=== PATIENT | female | born 1990 | race Caucasian/White ===

== ENCOUNTER → 2018-01-12 17:32 | Outpatient (CLI) | payer MEDICAID ==
[~2018-01-12 17:32] MED LIST: FERROUS SULFAT325 MG PO; IBUPROFEN800 MG PO; PERCOCET 7.5/321 TAB PO; PRENATAL COMPLE1 TAB PO
[2018-01-13 02:18] VITALS: BMI 27.3
== END | disposition home or self-care (01) ==
LOC: D.LDO 17:32
DX: O26.899 Other specified pregnancy related conditions, unspecified trimester (principal); Z3A.00 Weeks of gestation of pregnancy not specified

== ENCOUNTER 2018-01-13 01:07 | Inpatient (IN) | payer MEDICAID ==
[2018-01-13] VITALS (8 sets, daily range): BP systolic 116–135; BP diastolic 56–71; Ht 160 cm; Wt 69.9 kg
[~2018-01-13] VITALS: Ht 160 cm; Wt 69.9 kg
--- NOTE | ~2018-01-13 | OP ---
PATIENT NAME: FAB ROBLES MEDICAL RECORD: [id number] :92 LOCATION:[facility] [id number] ADMISSION DATE:01/13/18 SURGEON: GEN HER MD DATE OF OPERATION: 01/13/2018 PREOPERATIVE DIAGNOSES: 1. at term, in active labor. 2. Nonreassuring surveillance. POSTDELIVERY DIAGNOSES: 1. at term, in active labor. 2. Nonreassuring surveillance. 3. Nuchal cord times 1. 4. OP presentation. PROCEDURE: Primary low transverse section. SURGEON: Gen Her MD PROTOTYPE DEICER ASSEMBLER: Pradeep Mcdonald ANESTHETIC: Continuous lumbar epidural/general anesthetic with endotracheal intubation. FINDINGS: Viable female . OP presentation. Nuchal cord times 1, reduced. Apgars 9 and 9. Weight 6 pounds 6 ounces. Unremarkable uterus, tubes and ovaries. Of note is pronounced sacral promontory. SPECIMEN REMOVED: Placenta. SPECIMEN DISPOSITION: Pathology. ESTIMATED BLOOD LOSS: 700 cc. FLUIDS: 1 liter of lactated Ringer's. URINE OUTPUT: 200 cc of clear urine. COMPLICATIONS: None. DRAIN: Begum to gravity. INDICATIONS: The patient is a 27-year-old female who presents in active labor. The patient developed deep variable decelerations and had a previous bradycardic event. The patient is consented for a primary low transverse section. DESCRIPTION OF PROCEDURE: After informed consent was assured, the patient was taken to the operating room where anesthetic was obtained without difficulty. The patient was prepped and draped and an assessment of the anesthetic reveals adequate anesthesia along the lower abdomen. However, the patient has increased sensation approaching the umbilicus. The procedure was started and upon reaching the fascia, the patient feels more discomfort and the procedure was ceased while rapid sequence induction was undertaken. Once this has been done, the rectus bellies were in the midline. The peritoneum entered bluntly and a rectus belly stretched. DeLee all-purpose retractor was inserted. OPERATIVE REPORT [id number] FAB ROBLES Low transverse hysterotomy was performed and the was delivered onto the abdomen atraumatically. The cord was doubly clamped and cut and the infant was passed to the attendance. Cord blood sample and cord gases obtained. The placenta was delivered via Crede maneuver. Uterus exteriorized, cleared of all clot and debris. The uterus is now closed in 2 layers. The initial layer was a running locked stitch of chromic and the second is an imbricating vertical mattress stitch of chromic. The pelvis was irrigated and irrigant removed. The uterus has now returned to the abdomen and the anterior cul-de-sac irrigated. The incision was inspected under the water and no bleeding is noted. The water was now removed and both sponges that had been placed earlier to keep the bowel from the incision is removed. The sponge count is correct times 1. The rectus was inspected and found to be hemostatic and then reapproximated with 2 loose chromic stitches in the midline. The fascia was closed with looped PDS. Subcutaneous tissues inspected, bleeding vessels cauterized. The skin was now reapproximated with marty. Sterile dressing is applied. Sponge, lap, and needle count is correct times 2 at the close of this procedure. TRANSINT:[id number] Voice Confirmation ID: [id number] DOCUMENT ID: [id number] GEN HER MD at 0820 CC: [id number] DICTATION DATE: 01/13/18 1631 DRAFTER CONSTRUCTION: 01/13/18 1700 ADM IN [facility] [address] [place] [address]
[2018-01-13 02:02] LABS: HEMATOCRIT 33.1 % (36.0-48.0); MCH 33.1 pg (26.0-34.0); MCHC 36.3 g/dL (31.0-37.0); MCV 91.4 fL (80.0-100.0); MEAN PLATELET VOLUME 11.5 fL (7.4-10.4); RBC 3.62 10x6/uL (4.00-5.40); RDW 13.6 % (11.5-14.5); WBC 15.1 10x3/uL (4.8-10.8)
[2018-01-13] MEDS ORDERED: PRENATAL COMPLE1 TAB PO (02:17)
[2018-01-13] MEDS ORDERED: FERROUS SULFAT325 MG PO (02:17)
[2018-01-13 03:13] LABS: APPEARANCE HAZY (CLEAR); COLOR YELLOW (YELLOW); GLUCOSE NEGATIVE (NEGATIVE); KETONE SMALL mg/dL (NEGATIVE); NITRITE NEGATIVE (NEGATIVE); PROTEIN NEGATIVE (NEGATIVE)
[2018-01-13 03:14] LABS: BILIRUBIN NEGATIVE (NEGATIVE); UROBILINOGEN NORMAL (NORMAL); WHITE CELLS - URINE 0-5 /hpf (0-5)
[2018-01-13 03:22] LABS: UDS - AMPHET NEGATIVE QUAL (NEGATIVE); UDS - BARB NEGATIVE QUAL (NEGATIVE); UDS - BENZO NEGATIVE QUAL (NEGATIVE); UDS - COCAINE NEGATIVE QUAL (NEGATIVE); UDS - OPIATE POSITIVE QUAL (NEGATIVE); UDS - PCP NEGATIVE QUAL (NEGATIVE); UDS - THC NEGATIVE QUAL (NEGATIVE)
[2018-01-14 03:10] VITALS: BP 113/62
[2018-01-14 07:51] LABS: HEMATOCRIT 23.4 % (36.0-48.0); HEMOGLOBIN 7.8 g/dL (12-16); MCHC 33.3 g/dL (31.0-37.0); MCV 92.9 fL (80.0-100.0); MEAN PLATELET VOLUME 10.3 fL (7.4-10.4); RBC 2.52 10x6/uL (4.00-5.40); RDW 13.5 % (11.5-14.5)
[2018-01-14 08:01] VITALS: BP 105/52
[2018-01-14 12:40] VITALS: BP 131/66
[2018-01-14 19:49] VITALS: BP 124/60
[2018-01-15 05:20] VITALS: BP 129/68
[2018-01-15 08:55] VITALS: BP 117/63
[2018-01-15 14:58] VITALS: BP 124/56
[2018-01-15 19:09] LABS: HEMATOCRIT 21.1 % (36.0-48.0)
[2018-01-15 20:06] VITALS: BP 119/65
[2018-01-15 23:15] VITALS: BP 125/60
[2018-01-16 06:00] VITALS: BP 107/53
[2018-01-16 08:05] VITALS: BP 130/65
[2018-01-16] MEDS ORDERED: PERCOCET 7.5/321 TAB PO (09:13)
[2018-01-16] MEDS ORDERED: IBUPROFEN800 MG PO (09:13)
[2018-01-17 03:12] LABS: RAPID PLASMA REAGIN Non Reactive (Non Reactive)
[2018-01-17 14:27] LABS: UDSC - AMPHET Negative ng/mL (Cutoff=1000); UDSC - BARB Negative ng/mL (Cutoff=300); UDSC - BENZO Negative ng/mL (Cutoff=300); UDSC - COC Negative ng/mL (Cutoff=300); UDSC - METH Negative ng/mL (Cutoff=300); UDSC - OPIATES Positive (Cutoff=300); UDSC - PCP Negative ng/mL (Cutoff=25); UDSC - PROPOXY Negative ng/mL (Cutoff=300); UDSC - THC Negative ng/mL (Cutoff=50)
== END 2018-01-16 12:30 | disposition home or self-care (01) | DRG 766 ==
LOC: D.LD 01:07
PROVIDERS: Obstetrics & Gynecology
PROC: 10D00Z1 Extraction of Products of Conception, Low, Open Approach (ICD-10-PCS; principal; 2018-01-13 15:51)
DX: O76 Abnormality in fetal heart rate and rhythm complicating labor and delivery (principal); Z3A.38 38 weeks gestation of pregnancy; Z37.0 Single live birth; O99.334 Smoking (tobacco) complicating childbirth; O69.81X0 Labor and delivery complicated by cord around neck, without compression, not applicable or unspecified

== ENCOUNTER 2020-11-12 03:19 | Outpatient (CLI) | payer MEDICAID ==
[2018-01-13 02:18] VITALS: BMI 27.3
[2020-11-12 04:48] LABS: BASOPHILS 0.3 % (0-2); EOSINOPHILS 0.9 % (0-7); HEMATOCRIT 28.8 % (36.0-48.0); HEMOGLOBIN 9.5 g/dL (12-16); IMMATURE GRANULOCYTES 1.1 % (0-5); LYMPHOCYTE ABS# 3.98 10x3/uL (1.18-3.74); LYMPHOCYTES 22.1 % (15-50); MCH 30.7 pg (26.0-34.0); MCV 93.2 fL (80.0-100.0); MEAN PLATELET VOLUME 11.3 fL (7.4-10.4); MONOCYTES 7.1 % (2-11); NEUTROPHIL ABS# 12.34 10x3/uL (1.56-6.13); NEUTROPHILS 68.5 % (40-80); RBC 3.09 10x6/uL (4.00-5.40); RDW 13.6 % (11.5-14.5)
[2020-11-12 05:05] LABS: PLATELET COUNT 203 10x3/uL (130-400)
[2020-11-12 06:10] LABS: UDS - AMPHET NEGATIVE QUAL (NEGATIVE); UDS - BARB NEGATIVE QUAL (NEGATIVE); UDS - BENZO NEGATIVE QUAL (NEGATIVE); UDS - COCAINE NEGATIVE QUAL (NEGATIVE); UDS - OPIATE NEGATIVE QUAL (NEGATIVE); UDS - PCP NEGATIVE QUAL (NEGATIVE); UDS - THC NEGATIVE QUAL (NEGATIVE)
[2020-11-12 06:22] LABS: BILIRUBIN NEGATIVE (NEGATIVE); KETONE NEGATIVE (NEGATIVE); NITRITE NEGATIVE (NEGATIVE); UROBILINOGEN NORMAL mg/dL (< 2)
[2020-11-12 06:24] LABS: BACTERIA MANY HPF (NONE SEEN); SQUAMOUS EPITHELIAL 0-5 HPF (0-4); WHITE CELLS - URINE 0-5 HPF (0-4)
== END 2020-11-12 08:00 | disposition home or self-care (01) ==
LOC: D.LDO 03:19
PROVIDERS: ATTEND Obstetrics & Gynecology
DX: O47.03 False labor before 37 completed weeks of gestation, third trimester (principal)

== ENCOUNTER 2020-11-20 00:29 | Outpatient (CLI) | payer MEDICAID ==
[2018-01-13 02:18] VITALS: BMI 27.3
== END 2020-11-20 08:13 | disposition home or self-care (01) ==
LOC: D.LDO 00:29
PROVIDERS: ATTEND Student in an Organized Health Care Education/Training Program
DX: O47.9 False labor, unspecified (principal)

== ENCOUNTER 2020-12-08 23:09 | Inpatient (IN) | payer MEDICAID ==
[~2020-12-08] VITALS: Ht 160 cm; Wt 62.1 kg
--- NOTE | ~2020-12-08 | OP ---
PATIENT NAME: FAB ROBLES ROESTTE MEDICAL RECORD: [id number] :92 LOCATION:[facility] [id number] ADMISSION DATE:12/08/20 SURGEON: DANA ZAPIEN DO DATE OF OPERATION: 12/09/2020 PREOPERATIVE DIAGNOSIS: Previous 39 weeks and 3 days, painful contractions. POSTOPERATIVE DIAGNOSIS: Previous 39 weeks and 3 days, painful contractions. PRIMARY SURGEON: Dana Zapien DO ANESTHESIA: Spinal. PROCEDURE: Repeat low transverse section via Pfannenstiel incision. FINDINGS: Male , weight 6 pounds 9 ounces, delivered at 0626. Apgars 8 and 9. Normal appearing uterus, bilateral fallopian tubes, bilateral ovaries. SPECIMENS: Placenta and cord. ESTIMATED BLOOD LOSS: 800 cc. IV FLUIDS: 1 liter. URINE OUTPUT: 600 cc clear urine. COMPLICATIONS: None. CONDITION: Stable. DESCRIPTION OF PROCEDURE: Procedure, risks, benefits, alternatives, and indications of the procedure were discussed with the patient, she voiced understanding of the procedure and signed the consent. She was taken to the OR where spinal anesthesia was administered and found to be adequate. She was placed in the dorsal supine position with a leftward tilt. She was prepped and draped in the normal sterile fashion. A Pfannenstiel skin incision was made with a scalpel and carried down to the underlying layer of the fascia with the Bovie. The fascia was incised in the midline and extended laterally. The inferior aspect of the fascial incision was grasped with 2 Celeste clamps and the rectus muscle was dissected off sharply. Attention was then turned to the superior aspect of the fascial incision. The rectus muscle was dissected off in a similar fashion. The rectus muscle was grasped with 2 Allises and down to the level of the peritoneum with a scalpel. The peritoneum was identified and noted to be free of adherent bowel and entered bluntly. The peritoneum was further with gentle traction. The bladder blade was inserted. A bladder flap was created with Metzenbaum scissors and pickups. The lower uterine segment was incised in a transverse fashion and the incision was extended with cephalad and caudad traction. The 's head was brought to the incision and the infant delivered without difficulty. Mouth and nose were suctioned. Cord was clamped and cut. The was handed off to the awaiting pediatric team. Placenta was manually removed. The uterus was exteriorized and a moist lap was used to assure complete removal of placental membranes. The hysterotomy was closed with 0 Vicryl in a running locked fashion with good OPERATIVE REPORT [id number] FAB ROBLES hemostasis. The posterior cul-de-sac was irrigated with warm sterile water and suctioned. The uterus, tubes, and ovaries were noted to be normal and returned back to the abdominal cavity. A moist laparotomy sponge was used for complete removal of blood clots and fluid from the abdominal cavity. The hysterotomy was reinspected and noted to be hemostatic. The rectus muscle was closed with 2-0 Monocryl in a running fashion with good hemostasis. The fascial incision was closed with 0 Vicryl in a running fashion with good hemostasis. The skin was closed with 3-0 Monocryl with good hemostasis and Steri-Strips covering. All needle, laps, sponge, and instrument counts were correct times 2. The patient tolerated the procedure well and she was taken to recovery room in stable condition. TRANSINT:[id number] Voice Confirmation ID: [id number] DOCUMENT ID: [id number] DANA ZAPIEN DO CC: [id number] DICTATION DATE: 12/18/20 1151 RECRUITER SPECIALIST: 12/18/20 1423 DIS IN 12/10/20 [facility] [address] [place] [address]
[2020-12-09] VITALS (11 sets, daily range): BP systolic 107–135; BP diastolic 53–78; Ht 160 cm; Wt 62.1 kg
[2020-12-09 03:38] LABS: HEMATOCRIT 31.4 % (36.0-48.0); HEMOGLOBIN 10.4 g/dL (12-16); MCH 30.5 pg (26.0-34.0); MCHC 33.1 g/dL (31.0-37.0); MCV 92.1 fL (80.0-100.0); MEAN PLATELET VOLUME 10.2 fL (7.4-10.4); RBC 3.41 10x6/uL (4.00-5.40); RDW 13.6 % (11.5-14.5); WBC 15.8 10x3/uL (4.8-10.8)
--- NOTE | 2020-12-09 06:30 | NUR ---
BABY BOY BORN AT 0626.
--- NOTE | 2020-12-09 08:03 | NUR ---
PT RECEIVED IN BED IN ROOM 1274, AAOx3, RATES PAIN APPROX 3/10 AT THIS TIME. BEDSIDE REPORT RECEIVED FROM NATALIE METAL AND PLASTIC HEATER. IV INFUSING PITOCIN ORDERED TO LEFT HAND PIV, C/D/I. LARGE DRESSING OVER LOW TRANSVERSE ABD INCISION IS C/D/I. FF, ML, U/3. MODERATE RUBRA LOCHIA NOTED TO PERIPAD, NO CLOTS EXPELLED WITH MASSAGE. PERIPAD CHANGED. VIERA CATH DRAINING CLEAR YELLOW URINE TO BEDSIDE DRAINAGE, 135ML EMPTIED FROM UROMETER. SCD'S ON LE BILAT AND ON PUMP. NO LE EDEMA NOTED. POC DISCUSSED WITH PT, UNDERSTANDING VERBALIZED. SIPPING ON CLEAR LIQUID LUNCH TRAY, DENIES NAUSEA. SRUx2, CL IN REACH.
--- NOTE | 2020-12-09 08:30 | NUR ---
FF, ML, U/3. MODERATE RUBRA LOCHIA, NO CLOTS. PERIPAD CHANGED. PT DENIES NEEDS. SRUx2, CL IN REACH.
--- NOTE | 2020-12-09 09:00 | NUR ---
FF, ML, U/3. MOD RUBRA LOCHIA, NO CLOTS. 3 PERIPADS FOR PAST HOUR WEIGHED AND NOTED TO BE 80ML BLOOD LOSS FROM 0800 TO 0900. WILL CONT TO MONITOR.
--- NOTE | 2020-12-09 09:30 | NUR ---
FF, ML, U/3. MODERATE RUBRA LOCHIA, NO CLOTS. PERIPAD CHANGED. NEW ICE PACK TO ABD. SRUx2, CL IN REACH.
--- NOTE | 2020-12-09 10:00 | NUR ---
FF, ML, U/3. MODERATE RUBRA LOCHIA, NO CLOTS. PERIPAD CHANGED. PERIPADS WEIGHED FROM 0900 TO 1000 AND NOTED TO 50ML BLOOD LOSS FOR THE HOUR. 130ML CLEAR YELLOW URINE EMPTIED FROM UROMETER. PT DENIES NEEDS AT THIS TIME. SRUx2, CL IN REACH.
--- NOTE | 2020-12-09 11:00 | NUR ---
THIS RN TO ROOM FOR PT CHECK. PT REQUESTING BROTH, COFFEE, AND SPRITE. PROVIDED TO PT REQUESTED. FF, ML, U/3. SMALL TO MODERATE RUBRA LOCHIA, NO CLOTS. PT CONTINUES TO RATE PAIN 3/10, DENIES FURTHER NEEDS. SRUx2, CL IN REACH.
--- NOTE | 2020-12-09 12:15 | NUR ---
THIS RN TO ROOM FOR PT CHECK. VS REMAIN STABLE, SEE FLOWSHEET FOR DOC. FF, ML, U/3. MODERATE RUBRA LOCHIA NOTED. PERIPAD, CHUX PAD, AND TOWEL CHANGED. BLOOD LOSS WEIGHED SINCE 1000 AND NOTED TO BE 136ML BLOOD LOSS. TOTAL BLOOD LOSS SINCE RECEIVING PT FROM PACU AT 0803 NOTED TO BE 266ML, WILL NOTIFY . 380ML CLEAR YELLOW URINE EMPTIED FROM UROMETER. VIERA BAG EMPTIED. PT SITTING UP IN BED TO EAT CLEAR LIQUID LUNCH TRAY, DENIES NAUSEA. PT STATES SHE WANTS TO NAP AFTER SHE EATS, LIGHTS DIMMED AND OVERBED DIMMER LIGHT ON FOR PT TO SEE TRAY. PT DENIES FURTHER NEEDS. SRUx2, CL IN REACH.
--- NOTE | 2020-12-09 12:34 | NUR ---
DR VALENCIA PHONED WITH REPORT ON MODERATE LOCHIA FLOW AND TOTAL BLOOD LOSS ON THIS RN TO BE 266ML. ORDER RECEIVED TO START PT ON 0.2MG METHERGINE PO Q8H AND CONTINUE TO MONITOR LOCHIA. IF LOCHIA FLOW DOES NOT DECREASE, NOTIFY MD AND MAY ORDER CBC. WILL PROCEED ORDERED.
--- NOTE | 2020-12-09 13:15 | NUR ---
REPORT TO HUSSEIN MARTINEZ TO ASSUME CARE OF PT FOR SECOND HALF OF SHIFT.
--- NOTE | 2020-12-09 13:44 | NUR ---
BEDSIDE REPORT REC'D FROM Deidra PRATHER RN. POC DISCUSSED WITH PT AND QUESTIONS ANSWERED. MORPHINE STOREROOM CLERK OFFERED, PT REFUSES AT THIS TIME. STATES THAT PAIN IS "NOT THAT BAD." PERICARE DONE. 16 MLS RUBRA LOCHIA TO PERIPAD. PADS, TOWELS AND CHUX CHANGED. REFUSES TO DO INCENTIVE SPIROMETER, EDUCATION PROVIDED. ICE PACK PROVIDED. FF, MIDLINE AND U3. BED IN LOW POSITION WITH SRUP X2. CALL LIGHT AND PHONE WITHIN REACH.
--- NOTE | 2020-12-09 13:57 | NUR ---
C/O ABD AND INCISIONAL DISCOMFORT WITH ABD SORENESS WITH MOVEMENT AND FUNDAL CHECKS 09/30. TORADOL GIVEN. METHERGINE GIVEN, EDUCATION PROVIDED, VERBALIZES UNDERSTANDING AND DENIES NEEDS.
--- NOTE | 2020-12-09 14:21 | NUR ---
CALLS VIA CALL LIGHT, RN TO BEDSIDE. PT REQUESTS BE PLACED IN OPEN CRIB AT BEDSIDE. STATES THAT SHE IS SLEEPY AND FALLING ASLEEP. OFFERED TO TAKEN TO NBN, REFUSES. EDUCATED ON SAFE SLEEP, VERBALIZES UNDERSTANDING. STATES THAT SIG OTHER WILL BE RETURNING TO HOSPITAL THIS EVENING LATER.
--- NOTE | 2020-12-09 14:38 | NUR ---
C/O ABD CRAMPING 01/30, REQUESTS MORPHINE GROUP DIRECTOR EXPERIENCE. INITIATED PER ORDER AND REQUEST. 5 MG BOLUS DOSE GIVEN PER ORDER. EDUCATED ON USE. PT FALLING ASLEEP DURING GROUP DIRECTOR EXPERIENCE IT SOFTWARE ENGINEER. TO NBN. BED IN LOW POSITION WITH SRUP X2. CALL LIGHT AND PHONE WITHIN REACH. SCD'S ON BLE. REPOSITIIONED INDEPENDENTLY TO R SIDE.
--- NOTE | 2020-12-09 15:14 | NUR ---
RESTING QUIETLY WITH EYES CLOSED LAYING ON R SIDE. RESP REGULAR AND UNLABORED, NO S/S OF DISTRESS NOTED. SCD'S ON BLE. IN NBN. BED IN LOW POSITION WITH SRUP X2. CALL LIGHT AND PHONE WITHIN REACH.
--- NOTE | 2020-12-09 16:03 | NUR ---
BF . JOHN CARRENO RN AT BEDSIDE. COLA PROVIDED PER PT REQUEST. DENIES ADDITIONAL NEEDS.
--- NOTE | 2020-12-09 17:18 | NUR ---
DR. VALENCIA CALLS UNIT. UPDATED ON PT V/S, URINE OUTPUT, LOCHIA, AND FUNDAL CHECK. ORDERS REC'D.
--- NOTE | 2020-12-09 18:48 | NUR ---
C/O ABD AND INCISIONAL DISCOMFORT. MEDICATED PER EMAR. PT REFUSES VIERA REMOVAL AT THIS TIME. STATES THAT SHE WANTS PERCOCET TO HAVE TIME TO WORK PRIOR TO GETTING OOB. PERICARE DONE. PADS CHANGED WITH SMALL AMT RUBRA LOCHIA, 2 QUARTER SIZED CLOTS NOTED. CHUX AND TOWELS CHANGED. CONTINUES TO REFUSE INCENTIVE SPIROMETER. SCD'S OFF PER PT REQUEST. SIG OTHER AT BEDSIDE, SUPPORTIVE AND ATTENTIVE TO PT AND INFANT NEEDS. BED IN LOW POSITION WITH SRUP X2. CALL LIGHT AND PHONE WITHIN REACH.
--- NOTE | 2020-12-09 19:30 | NUR ---
REPORT RECEIVED FROM HUSSEIN MARTINEZ TO ASSUME PATIENT CARE.
--- NOTE | 2020-12-09 20:41 | NUR ---
PT SITTING UP IN BED TRYING TO FEED . SHIFT ASSESSMENT COMPLETED AT THIS TIME AND VIERA CATHETER REMOVED WITHOUT INCIDENT. PERICARE DONE, BLEEDING SCANT, PADS CHANGED. FRESH ICE PAD PLACED TO ABDOMEN. PT ENCOURAGED TO CONTINUE TO TRY TO FEED HER . NURSERY INFORMED OF DIFFICULTY GETTING INFANT TO BOTTLE FEED.
--- NOTE | 2020-12-09 22:00 | NUR ---
PT UP TO SHOWER, TOWELS&RAGS PROVIDED. TOWEL PLACED ON FLOOR TO AVOID SLIPS. BED LINENS CHANGED. NO FURTHER NEEDS IDENTIFIED. WILL CONTINUE TO MONITOR.
--- NOTE | 2020-12-09 22:38 | NUR ---
PATIENT FINISHED SHOWERING, DRESSING OFF AND INCISION WELL APPROXIAMATED WITH STERI-STRIPS. EXTRA TOWELS PLACED ON FLOOR. SMALL PLUM SIZED CLOT ON SHOWER FLOOR. PT REASSURED THAT IT IS NORMAL. PT TEACHING DONE. ALL QUESTIONS ANSWERED. NO FURTHER NEEDS IDENTIFIED. WILL CONTINUE TO MONITOR.
--- NOTE | 2020-12-09 23:09 | NUR ---
PATIENTS IV RETAPED PER PT REQUEST. NO FURTHER NEEDS IDENTIFIED. WILL CONTINUE TO MONITOR.
--- NOTE | 2020-12-10 01:15 | NUR ---
PT CALLED OUT FOR A NURSE, THIS RN TO THE BEDSIDE. PT STATES THAT SHE CHECKED THE BABIES TEMPERATURE BECAUSE HE WAS CRYING AND SHE DIDNT KNOW WHAT WAS WRONG. PT NOW . PT REQUESTING A NEW SHIRT AND BLANKETS FOR THE BABY BECAUSE THERE IS PEE AND POOP ON THEM.
--- NOTE | 2020-12-10 02:35 | NUR ---
PT RINGS CALL LIGHT REQUESTING PAIN MEDICATION. RN TO BEDSIDE. PT RATES PAIN 10/10. PERCOCET 10/325MG X1 TAB GIVEN PER ORDERS. PT SITTING UP IN BED WITH UP IN LAP, HOLDING AT ARMS LENGTH, TEARFUL, AND SAYS "STOP, PLEASE STOP. CAN YOU PLEASE CHILL OUT" TO THE INFANT. TAKEN PER RN TO OPEN CRIB AT BEDSIDE. SWADDLED IN BLANKETS X2 AND PACIFIER IN PLACE. PT STATES, "I JUST NEED SLEEP. HE DOESN'T SLEEP. I LITERALLY LAY HIM DOWN AND 5 MINUTES LATER HE'S SCREAMING AGAIN." EDUCATED PT ON FREQUENCY AND LENGTH. PT TEARFUL STATING, "HE SUCKED A BLISTER ON MY NIPPLE AND IT HURTS." LANOLIN PROVIDED. ENCOURAGED PT TO SUPPLEMENT DUE TO HER STRESS LEVEL. PT DENIES FURTHER NEEDS AT THIS TIME. WILL CONTINUE TO MONITOR PRN.
--- NOTE | 2020-12-10 03:07 | NUR ---
PT WALKING THE HALLS AND THEN WALKED TO THE NURSE DESK. ASKS, "HOW LONG UNTIL THIS SHOULDER PAIN GOES AWAY." EDUCATED PT ON GAS PAIN AND WALKING TO ALLEVIATE GAS PAINS. UNDERSTANDING VERBALIZED. ASLEEP IN OPEN CRIB BEHIND NURSE DESK. PT DID NOT ACKNOWLEDGE PRESENCE OR QUESTION INFANT'S STATUS. PT THEN WALKED BACK TO ROOM STATING, "I'M GOING TO GO LAY DOWN BECAUSE I FEEL LIKE I'M GOING TO FALL OUT."
--- NOTE | 2020-12-10 04:30 | NUR ---
PATIENT LYING IN BED WITH EYES CLOSED, EASILY AROUSED TO VERBAL. STATES THAT SHE REALLY WANTS A CIGARETTE AND ASKS IF SHE CAN GO OUTSIDE AND SMOKE. HOSPITAL POLICY REVIEWED AND PT OFFERED A NICOTINE PATCH. PT REFUSES AND ASKS IF IT IS OK IF SHE GOES TO THE PARKING LOT BECAUSE HER CAR IS IN THE FIRST SPOT. REINFORCED HOSPITAL POLICY.
--- NOTE | 2020-12-10 04:50 | NUR ---
PATIENT AMBULATING IN HALLWAY.
--- NOTE | 2020-12-10 05:01 | NUR ---
PT TO LABOR AND DELIVERY NURSES STATION TO GET THE BABY AND TAKE HIM BACK TO HER ROOM.
--- NOTE | 2020-12-10 05:41 | NUR ---
PATIENT AMBULATING IN HALLWAY. STATES THAT SHE WOULD LIKE SOME PAIN MEDICINE WHEN ITS TIME.
--- NOTE | 2020-12-10 05:59 | NUR ---
PATIENT UP TO NURSES STATION WITH A BOTTLE ASKING HOW MUCH THE BABY NEEDS TO EAT. LAKIA,RN INFORMING PATIENT OF HOW MUCH TO FEED THE BABY AND WHAT TIME HE NEEDS TO EAT.
--- NOTE | 2020-12-10 06:26 | NUR ---
PT WALKING IN THE HALLWAY. DENIES NEEDS AT THIS TIME. INFORMED NURSERY RN THAT SHE HAD JUST CHANGED A DIAPER.
--- NOTE | 2020-12-10 06:28 | NUR ---
PATIENT WENT BACK TO HER ROOM AND GOT THE INFANT AND IS WALKING IN THE HALLWAY HOLDING THE BABY IN HER ARMS AND TRYING TO FEED HIM WHILE SHE IS WALKING. INFORMED PT OF HOSPITAL POLICY THAT THE INFANT NEEDS TO BE IN THE CRIB. PT BACK TO HER ROOM.
[2020-12-10 07:16] LABS: BASOPHILS 0.3 % (0-2); EOSINOPHILS 0.6 % (0-7); HEMATOCRIT 25.5 % (36.0-48.0); HEMOGLOBIN 8.5 g/dL (12-16); LYMPHOCYTES 13.6 % (15-50); MCH 30.5 pg (26.0-34.0); MCHC 33.3 g/dL (31.0-37.0); MCV 91.6 fL (80.0-100.0); MEAN PLATELET VOLUME 9.1 fL (7.4-10.4); MONOCYTES 6.2 % (2-11); NEUTROPHILS 79.3 % (40-80); PLATELET COUNT 204 10x3/uL (130-400); RBC 2.78 10x6/uL (4.00-5.40); RDW 13.6 % (11.5-14.5); WBC 16.1 10x3/uL (4.8-10.8)
--- NOTE | 2020-12-10 07:40 | NUR ---
PT TO DESK REQUESTING TO AMBULATE TO CAR TO GET INFANT CAR SEAT TO BRING TO UNIT. PT INSTRUCTED THAT SHE CAN AMBULATE ON UNIT D/T RECEIVIG NARCOTICS SHE IS A FALL RISK AND NEEDS TO BE WERE SHE CAN BE SEEN BY STAFF, VERBALIZES UNDERSTANDING. INFANT IN NBN AT THIS TIME. DENIES PAIN AND NEEDS. GAS-X DISCUSSED WITH PT, REFUSES AT THIS TIME. STEADY GAIT NOTED.
--- NOTE | 2020-12-10 07:47 | NUR ---
Arnulfo STAPLETON, TRUCK CHAUFFEUR INFORMED OF INCIDENT WITH PT DURING WASHROOM OPERATOR AND REPORTED CONCERNS OF STAFF REGARDING SAFETY. JOHN CARRENO ALSO PRESENT. PER Arnulfo STAPLETON MAKE A REPORT WITH [facility] REGARDING NOTED ACTIONS OF PT DURING PREVIOUS SHIFT.
[2020-12-10 08:14] LABS: RAPID PLASMA REAGIN Non Reactive (Non Reactive)
--- NOTE | 2020-12-10 08:18 | NUR ---
PT RETURNS TO UNIT CARRYING CARSEAT WITH BASE. STATES THTA SHE WENT TO HER CAR. PT EDUCATED ON ACTIVITY/LIFTING RESTRICTION FOLLOWING AND IMPORTANCE OF REMAINING ON UNIT, VERBALIZES UNDERSTANDING. L HAND PIV D/C'D WITH TIP INTACT. PREPARING TO EAT BREAKFAST TRAY. C/O ABD AND INCISIONAL DISCOMFORT 6-01/30, REQUESTS PAIN MEDS. WILL PROVIDE PER PT REQUEST. BED IN LOW POSITION WITH SRUPX2. CALL LIGHT AND PHONE WITHIN REACH. INFANT REMAINS IN NBN.
--- NOTE | 2020-12-10 08:32 | NUR ---
C/O ABD AND INCISIONAL DISCOMFORT 01/30. PERCOCET GIVEN PER EMAR PER PT REQUEST. EATING BREAKFAST TRAY. ICE PROVIDED. DENIES ADDITIONAL NEEDS.
--- NOTE | 2020-12-10 09:09 | NUR ---
AMBULATORY ON UNIT. STEADY GAIT NOTED. DENIES NEEDS. PT INSTRUCTED TO CALL RN TO BEDSIDE VIA CALL LIGHT WHEN FINISHED AMBULATING.
[2020-12-10 09:30] VITALS: BP 120/60
--- NOTE | 2020-12-10 09:30 | NUR ---
SHIFT ASSESSMENT COMPLETED PER FLOWSHEET. VSS. FF, MIDLINE AND U2 WITH SCANT RUBRA LOCHIA, NO CLOTS NOTED. C/O OCCASIONAL CRAMPING. REPORTS PAIN IS MUCH IMPROVED SINCE RECEIVING PAIN MEDICATION. ABD DISTENDED, BOWEL SOUNDS HYPOACTIVE. PT REPORTS THAT SHE HAS BEEN BELCHING BUT HAS NOT PASSED FLATUS AT THIS TIME. REPORTS VOIDING WITHOUT DIFFICULTY, STATES THAT SHE MISSED THE HAT WHEN SHE VOIDED, WILL NOTIFY RN WHEN SHE VOIDS AGAIN AND WILL VOID IN HAT FOR RN TO COLLECT. DISCUSSED INTERVENTIONS WITH PT
--- NOTE | 2020-12-10 09:43 | NUR ---
DR. MORENO TO BEDSIDE.
--- NOTE | 2020-12-10 09:57 | NUR ---
DR. ZAPIEN NOTIFIED OF PT ACTIONS WITH INFANT AND DEMEANOR TOWARDS WELL STAFF CONCERNS FOR SAFETY AND THAT REPORT HAD BEEN MADE TO [facility].
--- NOTE | 2020-12-10 10:26 | NUR ---
DR. MORENO BACK TO NURSES STATION. THIS RN DISCUSSES CONCERN FOR SAFETY. DR. MORENO REPORTS THAT PT REPORTED HOMICIDIAL IDEATION TOWARDS INFANT TO HER DURING TIME AT BEDSIDE. Arnulfo STAPLETON, FIRER BOILER AND DR. ZAPIEN NOTIFIED. CURRENTLY IN NBN.
--- NOTE | 2020-12-10 10:47 | NUR ---
RN TO BEDSIDE. LAYING ON L SIDE RESTING WITH EYES CLOSED. RESP REGULAR AND UNLABORED, NO S/S OF DISTRESS NOTED. BED IN LOW POSITION WITH SRUP X2. CALL LIGHT AND PHONE WITHIN REACH.
--- NOTE | 2020-12-10 11:29 | NUR ---
RN TO BEDSIDE. LAYING ON L SIDE RESTING WITH EYES CLOSED. RESP REGULAR AND UNLABORED, NO S/S OF DISTRESS NOTED. BED IN LOW POSITION WITH SRUP X2. CALL LIGHT AND PHONE WITHIN REACH. NO URINE IN HAT IN BR. SNORING OCCASIONALLY.
--- NOTE | 2020-12-10 12:26 | NUR ---
RN TO BEDSIDE. LAYING ON L SIDE RESTING WITH EYES CLOSED. RESP REGULAR AND UNLABORED, NO S/S OF DISTRESS NOTED. BED IN LOW POSITION WITH SRUP X2. CALL LIGHT AND PHONE WITHIN REACH. LUNCH TRAY PROVIDED. AROUSES TO VOICE AND TOUCH. STATES THAT SHE WILL EAT LATER. REPORTS THAT DID VOID "BUT I MISSED." REINFORCED NEED FOR URINE SPECIMAN. VERBALIZES UNDERSTANDING.
[2020-12-10 13:27] VITALS: BP 122/72
--- NOTE | 2020-12-10 13:27 | NUR ---
C/O ABD AND INCISIONAL DISCOMFORT. MEDICATED PER EMAR. VSS. FF, MIDLINE AND U2 WITH SCANT RUBRA LOCHIA, NO CLOTS NOTED. LOWER TRANSVERSE ABD INCISION, WELL APPROXIMATED WITH STERI-STRIPS IN PLACE, NO DRAINAAGE NOTED. PT VOICES CONCERNS TO RN REGARDING REPORT THAT SHE HAD BEEN NOTIFIED BY DR. MORENO THAT HAD BEEN MADE TO [facility] D/T SAFETY CONCERNS FOR . PT REPORTS TO THIS RN THAT SHE WAS DX BODERLINE BIPOLAR BUT DID NOT NEED OR TAKE MEDICATIONS. VERBALIZES THAT SHE HAD NOT TAKEN MEDICATIONS IN YEARS FOR BIPOLAR DISORDER. 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 I PUT HER IN HER BASSINET AND WALKED OUTSIDE." STATES HER DAUGTHER WAS 3 WEEKS OLD AT THIS TIME AND WAS A DIFFICULTY INFANT. REPORTS THAT SHE LIVES WITH HER MOTHER AND STEPFATHER, STATES THEY ARE SUPPORTIVE AND WILL BE ABLE TO HELP WITH CHILDREN "SOMETIMES." REPORTS THAT SHE [facility] WAS INVOLVED FOLLOWING DELIVERY OF HER DAUGHTER. PT EDUCATED ON IMPORTANCE OF ASKING FOR HELP AND ENSURING SAFETY. VERBALIZES UNDERSTANDING.
--- NOTE | 2020-12-10 14:10 | NUR ---
DENIES PAIN. DISCUSSED NEED FOR URINE. STATES THAT SHE JUST VOIDED BUT HAD TAKEN HAT OUT OF TOILET D/T "FORGETTING YOU NEEDED URINE." DENIES NEEDS. BED IN LOW POSITION WITH SRUP X2. CALL LIGHT AND PHONE WITHIN REACH.
--- NOTE | 2020-12-10 15:03 | NUR ---
DR. ZAPIEN TO ROOM TO DISCUSS POC AND ANSWER PT QUESTIONS.
--- NOTE | 2020-12-10 15:27 | NUR ---
GERMAINE, WITH [facility] TO BEDSIDE TO DISCUSS CASE WITH . THIS RN REMAINS AT BEDSIDE PER PT REQUEST.
[2020-12-10 16:08] LABS: UDS - AMPHET NEGATIVE QUAL (NEGATIVE); UDS - BARB NEGATIVE QUAL (NEGATIVE); UDS - BENZO NEGATIVE QUAL (NEGATIVE); UDS - COCAINE NEGATIVE QUAL (NEGATIVE); UDS - OPIATE POSITIVE QUAL (NEGATIVE); UDS - PCP NEGATIVE QUAL (NEGATIVE); UDS - THC NEGATIVE QUAL (NEGATIVE)
--- NOTE | 2020-12-10 16:32 | NUR ---
DINNER TRAY TO BEDSIDE. PT NOT IN ROOM OR BR AT THIS TIME. [facility]
--- NOTE | 2020-12-10 16:41 | NUR ---
Arnulfo STAPLETON, NURSING STAFF DEVELOPMENT COORDINATOR AND Damaris SANTOS Teo RN NOTIFIED OF PT ELOPEMENT. CARSEAT AND CARE ITEMS LEFT IN ROOM, HOWEVER NO PURSE OR WALLET NOTED IN ROOM. THIS RN AND Arnulfo STAPLETON CONFERENCED WITH WINTER SMITH FOR PSYCH REGARDING PT SITUATION AND VOICED HOMICIDIAL IDEATION TOWARDS INFANT DISCUSSED. PER JETT GIVEN PT'S DOCUMENTED CONVERSATION WITH DR. MORENO AND VOICED PAST EXPERIENCES PT WOULD QUALIFY FOR IN-PT EVAL. TO ROOM WITH Arnulfo ROJAS. PT REMAINS OFF UNIT. Arnulfo STAPLETON AND JETT TO SEARCH FOR PT ON FIRST FLOOR AND PARKING LOT.
--- NOTE | 2020-12-10 16:47 | NUR ---
HALEIGH OSMAN, AND RANDAL, [employer] CASE WORKERS NOTIFIED THAT PT HAD ELOPED.
--- NOTE | 2020-12-10 17:20 | NUR ---
AT 1632, OBST TO PT ROOM TO DELIVERY DINNER TRAY, PT NOT IN ROOM. RNS AT DESK CONSULTING WITH [facility]. DID NOT SEE PATIENT LEAVE THE UNIT. REQUESTED CONSULT FROM PSYCH, LEAD EMBEDDED SOFTWARE ENGINEER COMES TO UNIT. STATES SINCE PATIENT IS NOT IN HER ROOM A CONSULT CAN NOT BE PERFORMED, BUT BASED ON DR. FRANCO DOCUMENTATION, PT MEETS CRITERIA FOR INPATIENT PSYCHIATRIC CARE. RN AND JAYA AIRCRAFT ENGINE CYLINDER MECHANIC, SEARCH FIRST FLOOR OF HOSPITAL AND PARKING LOT, UNABLE TO LOCATE. HOSPITAL SECURITY NOTIFIED. ADMINISTRATION NOTIFIED OF ELOPEMENT, AND POLICE DEPARTMENT NOTIFIED OF ELOPEMENT OF PATIENT WITH HOMICIDAL IDEATIONS AND OPEN [facility] INVESTIGATION. DR. ZAPIEN NOTIFIED OF PT STATUS. PATIENT REMAINS IN NURSERY, SAFE, IN NO ACUTE DISTRESS. AWAITING CALL FROM DR. MORENO TO UPDATE ON PT STATUS.
--- NOTE | 2020-12-10 17:30 | NUR ---
DR. MORENO CALLED. NOTIFIED OF PATIENT ELOPEMENT STATUS AND THAT IS SAFE IN NURSERY.
--- NOTE | 2020-12-10 17:52 | NUR ---
RETURNS TO UNIT. THIS RN AND [place] NESS RN TO ROOM. PT INFORMED THAT SHE HAD TO BE D/C'D D/T LEAVING UNIT FOR EXTENDED PERIOD OF TIME. BECOMES TEARFUL, ASKS TO SEE . ZORAN RIDLEYENDOCRINOLOGY SPECIALIST NOTIFIED OF SITUATION. PER KHAI, D/C FOR ELOPEMENT TO BE UPHELD AND MOB RIGHTS TO INFANT IS UP TO DHS AND PEDI ORDERS. PER HUSSEIN CARRENO DR. IS OK WITH MOB VISITING INFANT IN NBN UNDER SUPERVISION ONLY. MOB INFORMED AND VERBALIZES UNDERSTANDING.
== END 2020-12-10 19:21 | disposition left against medical advice (07) | DRG 787 ==
LOC: D.LDO 23:09 → D.LD 23:10 → D.LDO 23:36 → D.LD 23:37
PROVIDERS: ADMIT Student in an Organized Health Care Education/Training Program; ATTEND Student in an Organized Health Care Education/Training Program
PROC: 10D00Z1 Extraction of Products of Conception, Low, Open Approach (ICD-10-PCS; principal; 2020-12-09 05:19)
DX: O34.219 Maternal care for unspecified type scar from previous cesarean delivery (principal); R45.851 Suicidal ideations; Z3A.39 39 weeks gestation of pregnancy; Z37.0 Single live birth; O99.334 Smoking (tobacco) complicating childbirth; F17.200 Nicotine dependence, unspecified, uncomplicated

== ENCOUNTER 2020-12-10 21:08 | Emergency (ER) | payer MEDICAID ==
[~2020-12-10] VITALS: Ht 160 cm; Wt 81.6 kg
[2020-12-10 21:26] VITALS: BP 140/84; Ht 160 cm; Wt 81.6 kg
[2020-12-10 21:50] LABS: BASOPHILS 0.7 % (0-2); EOSINOPHILS 0.6 % (0-7); HEMATOCRIT 29.8 % (36.0-48.0); LYMPHOCYTES 17.9 % (15-50); MCH 30.5 pg (26.0-34.0); MCHC 33.5 g/dL (31.0-37.0); MCV 91.2 fL (80.0-100.0); MEAN PLATELET VOLUME 8.2 fL (7.4-10.4); MONOCYTES 5.9 % (2-11); NEUTROPHILS 74.9 % (40-80); RBC 3.27 10x6/uL (4.00-5.40); RDW 13.8 % (11.5-14.5); WBC 19.9 10x3/uL (4.8-10.8)
[2020-12-10 21:57] LABS: CALC OSMOLALITY 275 mosm/kg (275-300); CALCIUM 8.9 mg/dL (8.5-10.1); CARBON DIOXIDE 22.8 mmol/L (21.0-32.0); CHLORIDE - SERUM 104 mmol/L (98-107); CREATININE - SERUM 0.7 mg/dL (0.6-1.3); GLUCOSE 91 mg/dL (74-106); SODIUM 139 mmol/L (136-145); UREA NITROGEN 6 mg/dL (7-18); eGFR NON AFRICAN AMERICAN > 90 mL/min (90-120)
[2020-12-10 21:58] LABS: PLATELET COUNT 264 10x3/uL (130-400)
[2020-12-10 21:59] LABS: UDS - AMPHET NEGATIVE QUAL (NEGATIVE); UDS - BARB NEGATIVE QUAL (NEGATIVE); UDS - BENZO NEGATIVE QUAL (NEGATIVE); UDS - COCAINE NEGATIVE QUAL (NEGATIVE); UDS - OPIATE NEGATIVE QUAL (NEGATIVE); UDS - PCP NEGATIVE QUAL (NEGATIVE); UDS - THC NEGATIVE QUAL (NEGATIVE)
[2020-12-10 22:02] LABS: BILIRUBIN NEGATIVE (NEGATIVE); KETONE NEGATIVE (NEGATIVE); NITRITE NEGATIVE (NEGATIVE); UROBILINOGEN NORMAL mg/dL (< 2)
[2020-12-10 22:04] LABS: ALBUMIN 2.8 g/dL (3.4-5.0); ALKALINE PHOSPHATASE 147 U/L (30-120); ALT (SGPT) 18 U/L (10-68); BILIRUBIN - TOTAL 0.56 mg/dL (0.2-1.3); MAGNESIUM - SERUM 1.8 mg/dL (1.8-2.4); PROTEIN - SERUM 6.5 g/dL (6.4-8.2)
[2020-12-10 23:23] LABS: SARS-CoV-2 ANTIGEN NEGATIVE- SARS-COV-2 (NEGATIVE)
[2020-12-11 03:35] LABS: HCG URINE POSITIVE (NEGATIVE)
== END 2020-12-11 05:05 ==
LOC: D.ER 21:08
PROVIDERS: Student in an Organized Health Care Education/Training Program
DX: O90.89 Other complications of the puerperium, not elsewhere classified (principal); R45.851 Suicidal ideations